=== PATIENT | female | born 1970 | race Caucasian/White ===

== ENCOUNTER 2020-01-12 21:57 | Outpatient (REF) | payer OTHER, SELFPAY ==
[2020-01-13 01:53] LABS: COVID-19 Test Positive (Negative)
== END 2020-01-12 21:58 | disposition home or self-care (01) ==
LOC: HO.EMPCOV 21:57
PROVIDERS: Visit Provider Internal Medicine
DX: Z20.828 Contact with and (suspected) exposure to other viral communicable diseases (principal)
CPT/HCPCS: 87635